=== PATIENT | female | born 1960 | race Hispanic/Latino ===

== ENCOUNTER 2021-03-10 16:18 | Emergency (ER) | payer OTHER ==
[2021-03-10 17:11] LABS: Absolute Lymphocytes (CBC) 2.3 K/uL (0.7-4.9); Basophils % 0.6 % (0-1.3); Hematocrit 39.1 % (36.0-45.0); Lymphocytes % 31.8 % (15.3-44.8); MPV 9.9 fL (7.6-11.3); RBC Red Blood Cell Count 4.41 M/uL (3.86-4.86)
[2021-03-10] MEDS ORDERED: NA CHLORIDE 0.9% 1,000 ML ONE (17:16)
[2021-03-10 17:40] LABS: ALT/SGPT 63 U/L (12-78); AST/SGOT 43 U/L (15-37); Albumin 3.7 g/dL (3.4-5.0); Alkaline Phosphatase 96 U/L (45-117); BUN Blood Urea Nitrogen 14 mg/dL (7-18); Bicarbonate 28 mmol/L (21-32); Bilirubin Direct < 0.1 mg/dL (0-0.2); Bilirubin Total 0.3 mg/dL (0.2-1.0); Glucose Level 222 mg/dL (74-106); NT PRO-BNP 64 pg/mL (<125); Potassium 3.4 mmol/L (3.5-5.1); Protein, Total 7.6 g/dL (6.4-8.2); Sodium Level 139 mmol/L (136-145); Troponin (Emerg Dept Use Only) < 0.02 ng/mL (0.0-0.045)
--- NOTE | 2021-03-10 17:50 | RAD REPORT ---
EXAM DESCRIPTION: RAD - Chest Single View - 03/10/2021 5:14 pm CLINICAL HISTORY: CHEST PAIN COMPARISON: None TECHNIQUE: AP portable chest image was obtained 03/10/2021 5:14 pm . FINDINGS: Lung volumes are low. No peripheral mass or consolidation. No significant failure or volum e overload. Large body habitus, portable technique and low lung volumes accentuate the interstitial p attern. Heart and vasculature are normal. No measurable pleural effusion and no pneumothorax. No acut e bony abnormality seen. No acute aortic findings suspected. IMPRESSION: No acute cardiopulmonary process.
[2021-03-10] MEDS ORDERED: LORazepam 2 MG/ML VIAL ONE (18:14)
--- NOTE | 2021-03-10 18:58 | ER ---
Nurse's Notes [facility] Name: Dominik Loving Age: 61 yrs Sex: Female : 1960 Arrival Date: 03/10/2021 Time: 16:22 Bed 2 Private MD: Diagnosis: Shortness of breath Presentation: 03/10 16:30 Chief complaint: Patient states: Heart palpitations, pressure and SOB began around 1400 ld1 today. Denies chest pain. Coronavirus screen: At this time, the client does not indicate any symptoms associated with coronavirus-19. Ebola Screen: No symptoms or risks identified at this time. Initial Sepsis Screen: Does the patient meet any 2 criteria? No. Patient's initial sepsis screen is negative. Does the patient have a suspected source of infection? No. Patient's initial sepsis screen is negative. Risk Assessment: Do you want to hurt yourself or someone else? Patient reports no desire to harm self or others. Onset of symptoms was March 10, 2021. 16:30 Method Of Arrival: Ambulatory ld1 16:30 Acuity: CHEN 3 ld1 Triage Assessment: 16:33 General: Appears in no apparent distress. comfortable, Behavior is calm, cooperative, ld1 appropriate for age. Pain: Denies pain. EENT: No signs and/or symptoms were reported regarding the EENT system. Neuro: Level of Consciousness is awake, alert, obeys commands, Oriented to person, place, time, situation, Appropriate for age. Neuro: Reports blurred vision. Cardiovascular: Reports fatigue, lightheadedness, palpitations, shortness of breath. Cardiovascular: Capillary refill < 3 seconds Patient's skin is warm and dry. Respiratory: Airway is patent Respiratory effort is even, unlabored, Respiratory pattern is regular, symmetrical. GI: Abdomen is round non-distended, Reports nausea. : No signs and/or symptoms were reported regarding the genitourinary system. Derm: No signs and/or symptoms reported regarding the dermatologic system. Musculoskeletal: No signs and/or symptoms reported regarding the musculoskeletal system. Historical: - Allergies: 18:47 No Known Allergies; jl7 - PMHx: 18:47 Hypertensive disorder; High cholesterol; jl7 - PSHx: 16:33 section; Cholecystectomy; Partial hysterectomy; ld1 - Immunization history:: Adult Immunizations up to date, Client reports receiving the 2nd dose of the Covid vaccine. - Social history:: Smoking status: Patient denies any tobacco usage or history of. Patient/guardian denies using alcohol, Patient/guardian denies using street drugs, The patient lives with family. - Family history:: not pertinent. Screenin:45 Abuse screen: Denies threats or abuse. Denies injuries from another. Nutritional jl7 screening: No deficits noted. Tuberculosis screening: No symptoms or risk factors identified. Fall Risk IV access (20 points). Total Sotelo Fall Scale indicates No Risk (0-24 pts). Assessment: 16:35 General: Appears in no apparent distress. uncomfortable, Behavior is cooperative, jl7 appropriate for age, anxious. Pain: Denies pain. Neuro: Level of Consciousness is awake, alert, obeys commands, Oriented to person, place, time, situation. Cardiovascular: Reports palpitations, shortness of breath, Patient's skin is warm and dry. Respiratory: Airway is patent Respiratory effort is even, unlabored, Respiratory pattern is regular, symmetrical. GI: Abdomen is non-distended, Reports nausea. Derm: Skin is pink, warm \T\ dry. 17:30 Reassessment: Patient appears in no apparent distress at this time. Patient and/or jl7 family updated on plan of care and expected duration. Pain level reassessed. Patient is alert, oriented x 3, equal unlabored respirations, skin warm/dry/pink. Patient states feeling better. 18:30 Reassessment: Patient appears in no apparent distress at this time. Patient and/or jl7 family updated on plan of care and expected duration. Pain level reassessed. Patient is alert, oriented x 3, equal unlabored respirations, skin warm/dry/pink. Patient states feeling better. Patient states symptoms have improved. Vital Signs: 16:30 BP 156 / 99; Pulse 99; Resp 20; Temp 97.9(TE); Pulse Ox 98% on R/A; Weight 97.98 kg; ld1 Height 5 ft. 1 in. (154.94 cm); Pain 0/10; 18:34 BP 123 / 78; Pulse 87; Resp 15; Pulse Ox 95% ; jl7 16:30 Body Mass Index 40.81 (97.98 kg, 154.94 cm) ld1 ED Course: 16:22 Patient arrived in ED. mr 16:31 Triage completed. ld1 16:33 Arm band placed on left wrist. ld1 16:34 Little Puente MD is Attending Physician. ma2 16:37 Irineo Cali, RN is Primary Nurse. jl7 16:45 Patient has correct armband on for positive identification. Placed in gown. Bed in low jl7 position. Call light in reach. Side rails up X 1. pvc monitor on. Pulse ox on. NIBP on. Warm blanket given. 17:00 Initial lab(s) drawn, by me, sent to lab. EKG done, by ED staff, reviewed by Little Puente MD COVID swab sent to lab. Inserted saline lock: 20 gauge in left antecubital area, using aseptic technique. Blood collected. 17:14 XRAY Chest (1 view) In Process Unspecified. EDMS 19:15 No provider procedures requiring assistance completed. IV discontinued, intact, jl7 bleeding controlled, No redness/swelling at site. Pressure dressing applied. Administered Medications: 17:30 Drug: NS 0.9% 1000 ml Route: IV; Rate: 1 bolus; Site: left antecubital; jl7 19:00 Follow up: Response: No adverse reaction; IV Status: Completed infusion; IV Intake: jl7 300ml 18:00 Drug: Ativan (LORazepam) 1 mg Route: IVP; Site: left antecubital; jl7 18:45 Follow up: Response: No adverse reaction; Anxiety decreased jl7 Intake: 19:00 IV: 300ml; Total: 300ml. jl7 Outcome: 18:57 Discharge ordered by . ma2 19:15 Discharged to home ambulatory. jl7 19:15 Condition: stable 19:15 Discharge instructions given to patient, Instructed on discharge instructions, follow up and referral plans. Demonstrated understanding of instructions, follow-up care. 19:16 Patient left the ED. jl7 Signatures: Dispatcher [employer] EDOK Della Sweet mr Irineo Cali, RN RN Little Gamez MD MD ma2 Dibbern, Lauren, RN RN ld1 Corrections: (The following items were deleted from the chart) 16:35 16:31 Allergies: No Known Allergies; ld1 ld1 16:35 16:31 Home Meds: methocarbamol 500 mg Oral tab 2 tabs 4 times per day; ld1 ld1 16: 16:31 Home Meds: rosuvastatin 5 mg oral cpSP 1 cap once daily; ld1 ld1 16: 16:31 Home Meds: carvedilol 25 mg oral tab 1 tab 2 times per day; ld1 ld1 16: 16:31 Home Meds: hydralazine 50 mg Oral tab 1 tab 2 times per day; ld1 ld1 16: 16:31 Home Meds: fibahkzhwx-lxihtulvd-jqibrzfrs 40-10-12.5 mg oral tab 1 tab once ld1 daily; ld1 16: 16:33 PMHx: Hypertensive disorder; ld1 16 16:33 PMHx: Diabetes mellitus; ld1 16 16:33 PMHx: Hypercholesterolemia; ld1 ld1 16: 16:33 PSHx: Colectomy; ld1 ld1
--- NOTE | 2021-03-10 18:58 | EDPHYS ---
Physician Documentation [facility] Name: Dominik Loving Age: 61 yrs Sex: Female : 1960 Arrival Date: 03/10/2021 Time: 16:22 Bed 2 Private MD: ED Physician Little Puente HPI: 03/10 17:27 This 61 yrs old Female presents to ER via Ambulatory with complaints of ma2 Palpitations, Nausea. 17:27 Context: The symptoms occur during sleep. Onset: The symptoms/episode began/occurred ma2 gradually, 1 day(s) ago. Associated signs and symptoms: Pertinent negatives: cough, lightheadedness, syncope, unusual stressors. Severity of symptoms: At their worst the symptoms were mild in the emergency department the symptoms have improved. The patient has experienced similar episodes in the past. Historical: - Allergies: 18:47 No Known Allergies; jl7 - PMHx: 18:47 Hypertensive disorder; High cholesterol; jl7 - PSHx: 16:33 section; Cholecystectomy; Partial hysterectomy; ld1 - Immunization history:: Adult Immunizations up to date, Client reports receiving the 2nd dose of the Covid vaccine. - Social history:: Smoking status: Patient denies any tobacco usage or history of. Patient/guardian denies using alcohol, Patient/guardian denies using street drugs, The patient lives with family. - Family history:: not pertinent. ROS: 17:27 Constitutional: Negative for fever, chills, and weight loss. ma2 17:27 All other systems are negative. Exam: 17:27 Constitutional: This is a well developed, well nourished patient who is awake, alert, ma2 and in no acute distress. Head/Face: Normocephalic, atraumatic. Eyes: Pupils equal round and reactive to light, extra-ocular motions intact. Lids and lashes normal. Conjunctiva and sclera are non-icteric and not injected. Cornea within normal limits. Periorbital areas with no swelling, redness, or edema. ENT: Nares patent. No nasal discharge, no septal abnormalities noted. Tympanic membranes are normal and external auditory canals are clear. Oropharynx with no redness, swelling, or masses, exudates, or evidence of obstruction, uvula midline. Mucous membranes moist. Neck: Trachea midline, no thyromegaly or masses palpated, and no cervical lymphadenopathy. Supple, full range of motion without nuchal rigidity, or vertebral point tenderness. No Meningismus. Chest/axilla: Normal chest wall appearance and motion. Nontender with no deformity. No lesions are appreciated. Cardiovascular: Regular rate and rhythm with a normal S1 and S2. No gallops, murmurs, or rubs. Normal PMI, no JVD. No pulse deficits. Respiratory: Lungs have equal breath sounds bilaterally, clear to auscultation and percussion. No rales, rhonchi or wheezes noted. No increased work of breathing, no retractions or nasal flaring. Abdomen/GI: Soft, non-tender, with normal bowel sounds. No distension or tympany. No guarding or rebound. No evidence of tenderness throughout. Back: No spinal tenderness. No costovertebral tenderness. Full range of motion. Skin: Warm, dry with normal turgor. Normal color with no rashes, no lesions, and no evidence of cellulitis. MS/ Extremity: Pulses equal, no cyanosis. Neurovascular intact. Full, normal range of motion. Neuro: Awake and alert, GCS 15, oriented to person, place, time, and situation. Cranial nerves II-XII grossly intact. Motor strength 5/5 in all extremities. Sensory grossly intact. Cerebellar exam normal. Normal gait. Psych: Awake, alert, with orientation to person, place and time. Behavior, mood, and affect are within normal limits. Vital Signs: 16:30 BP 156 / 99; Pulse 99; Resp 20; Temp 97.9(TE); Pulse Ox 98% on R/A; Weight 97.98 kg; ld1 Height 5 ft. 1 in. (154.94 cm); Pain 0/10; 18:34 BP 123 / 78; Pulse 87; Resp 15; Pulse Ox 95% ; jl7 16:30 Body Mass Index 40.81 (97.98 kg, 154.94 cm) ld1 MDM: 16:38 Patient medically screened. ma2 18:55 BOBBI Risk Score: Not Applicable. Differential diagnosis: arrythmia, dehydration, stress ma2 disorder. Differential diagnosis: arrythmia. Data reviewed: vital signs, nurses notes. Data interpreted: phototypesetting equipment monitor:. Counseling: I had a detailed discussion with the patient and/or guardian regarding: the historical points, exam findings, and any diagnostic results supporting the discharge/admit diagnosis, the presence of at least one elevated blood pressure reading (>120/80) during this emergency department visit, the need for outpatient follow up. Response to treatment: the patient's symptoms have markedly improved after treatment. ED course: patient did not had any chest pain or angina equivalent . 18:57 Patient medically screened. [facility] 03/10 16:33 Order name: Basic Metabolic Panel; Complete Time: 18:01 kb 03/10 16:33 Order name: CBC with Diff; Complete Time: 17:26 kb 03/10 16:33 Order name: LFT's; Complete Time: 18: kb 03/10 16:33 Order name: Magnesium; Complete Time: 18: kb 03/10 16:33 Order name: NT PRO-BNP; Complete Time: 18: kb 03/10 16:33 Order name: PT-INR; Complete Time: 17:26 kb 03/10 16:33 Order name: Troponin (emerg Dept Use Only); Complete Time: 18:01 kb 03/10 16:33 Order name: XRAY Chest (1 view); Complete Time: 18:01 kb 03/10 16:33 Order name: EKG; Complete Time: 16:34 kb 03/10 16:33 Order name: Cardiac monitoring; Complete Time: 17:04 kb 03/10 16:42 Order name: COVID-19 SARS RT PCR (Document "Date of Onset" if Symptomatic) 1 03/10 18:13 Order name: D-Dimer; Complete Time: 18:55 [facility] 03/10 16:33 Order name: EKG - Nurse/Tech; Complete Time: 17:04 kb 03/10 16:33 Order name: IV Saline Lock; Complete Time: 17:04 kb 03/10 16:33 Order name: Labs collected and sent; Complete Time: 17:05 kb 03/10 16:33 Order name: O2 Per Protocol; Complete Time: 17:05 kb 03/10 16:33 Order name: O2 Sat Monitoring; Complete Time: 17:05 kb Administered Medications: 17:30 Drug: NS 0.9% 1000 ml Route: IV; Rate: 1 bolus; Site: left antecubital; jl7 19:00 Follow up: Response: No adverse reaction; IV Status: Completed infusion; IV Intake: jl7 300ml 18:00 Drug: Ativan (LORazepam) 1 mg Route: IVP; Site: left antecubital; 7 18:45 Follow up: Response: No adverse reaction; Anxiety decreased jl7 Disposition Summary: 03/10/21 18:57 Discharge Ordered Location: Home ma2 Condition: Stable ma2 Diagnosis - Shortness of breath ma2 Followup: ma2 - With: Private Physician - When: Tomorrow - Reason: Continuance of care Discharge Instructions: - Discharge Summary Sheet ma2 - Shortness of Breath, Adult, Zvta-sk-Odex ma2 Forms: - Medication Reconciliation Form ma2 - Thank You Letter ma2 - Antibiotic Education ma2 - Prescription Opioid Use ma2 Signatures: Dispatcher [employer] EDIva Padron FNP-C FNP-Irineo Mcmullen RN RN jl7 Little Puente MD MD ma2 Lovely Covarrubias RN RN ld1 Corrections: (The following items were deleted from the chart) 16:35 16:31 Allergies: No Known Allergies; ld1 ld 16:35 16:31 Home Meds: methocarbamol 500 mg Oral tab 2 tabs 4 times per day; ld1 ld 16:35 16:31 Home Meds: rosuvastatin 5 mg oral cpSP 1 cap once daily; ld1 ld 16:35 16:31 Home Meds: carvedilol 25 mg oral tab 1 tab 2 times per day; ld1 ld 16:35 16:31 Home Meds: hydralazine 50 mg Oral tab 1 tab 2 times per day; ld1 ld 16:35 16:31 Home Meds: ofrtusrvmm-jjydbszid-cjogkjefu 40-10-12.5 mg oral tab 1 tab once ld1 daily; ld 16:35 16:33 PMHx: Hypertensive disorder; ld1 ld 16: 16:33 PMHx: Diabetes mellitus; ld1 ld 16: 16:33 PMHx: Hypercholesterolemia; ld1 ld 16:35 16:33 PSHx: Colectomy; ld1 ld1
[2021-03-10 19:30] VITALS: TEMP 97.9
[2021-03-10 19:32] VITALS: BP 123/78; O2SAT 95
--- NOTE | 2021-03-11 20:37 | EKG ---
Test Date: 2021-03-10 Test Time: 16:38:45 Traffic Signal Supervisor Maintenance: [place] MEASUREMENT RESULTS: Intervals: Rate: 93 FL: 148 QRSD: 68 QT: 390 QTc: 484 [place]: P: 38 FL: 148 QRS: 9 T: 59 INTERPRETIVE STATEMENTS: Normal sinus rhythm Nonspecific ST abnormality Abnormal ECG No previous ECG available for comparison Electronically Signed On 03-11-21 20:35:11 COMMANDING OFFICER GARAGE by Onesimo Renee
--- OUTSIDE RECORDS SUMMARY | 2021-03-12 21:46 | XMS REPORT | Continuity of Care Document ---
:1960 Author Organization [facility] t Address [address] [place] [address] Care Team Providers Name Role Phone Pcp, Does Not Have A Primary Care Physician Nurse, Db Urgent Care Attending Clinician Unavailable Ebrahim ROSS CARRIER DRIVER Attending Clinician EBRAHIM Attending Clinician Unavailable Provider, Urgent Care Attending Clinician Unavailable Anene ROSS CARRIER DRIVER Attending Clinician ANENE Attending Clinician Unavailable Payers Payer Name Policy Type Policy Number Effective Date Expiration Date Sav PALM [employer] [id number] 2020 00:00:00 Problems Condition Condition Condition Status Onset Resolution Last Treating Co mments Source Name Details Category Date Date Treatment Clinician Date No known No known Disease Unive rs active active ity of problems problems [facility] Allergies, Adverse Reactions, Alerts Allergy Allergy Status Severity Reaction(s) Onset Inactive Treating Comm ents Source Name Type Date Date Clinician NO KNOWN Drug Active Univers ALLERGIE Class ity of S [facility] Social History Social Habit Start Date Stop Date Quantity Comments Source Exposure to Not sure [facility] SARS-CoV-2 [facility] (event) [place] Alcohol intake 2021-03-10 2021-03-10 Lifetime University of 00:00:00 00:00:00 non-drinker [facility] (finding) [place] Tobacco use and 2020-08-13 2020-08-13 Never used Universit y of exposure 00:00:00 00:00:00 [facility] Sex Assigned At [birth year] Universit y of 00:00:00 00:00:00 [facility] Smoking Status Start Date Stop Date Source Never smoker [facility] Medications Ordered Filled Start Stop Current Ordering Indication Dosage Frequency Signature Comments Components Source Medication Medication Date Date Medication? Clinician (SIG) Name Name paula 2020-0 2020- No [id number] 40mg Univers ne 08-13 ity of acetonide 14:30: 13:41 [place] (KENALOG) 00 :00 Medical injection Branch 40 mg triamcinolo 0 2020- No [id number] 40mg 40 mg, Univers ne 08-13 Intramuscu ity of acetonide 14:30: 13:41 [place]CE, [place] 00 :00 1 dose, Medical injection Fri Branch 40 mg 08/13/20 at 0930, Routine amLODIPine Yes 10mg Take 10 mg U nivers 10 mg 3-28 by mouth ity of tablet 00:00: daily. [facility] olmesartan Yes 40mg Take 40 mg U nivers 40 mg 3-28 by mouth ity of tablet 00:00: daily. [facility] amLODIPine Yes 10mg Take 10 mg U nivers 10 mg 3-28 by mouth ity of tablet 00:00: daily. [facility] olmesartan Yes 40mg Take 40 mg U nivers 40 mg 3-28 by mouth ity of tablet 00:00: daily. [facility] hydrALAZINE 0 Yes 50mg Take 50 mg Univers 50 mg 2-21 by mouth 3 ity of tablet 00:00: (three) [place] times Medical daily. Branch hydrALAZINE 0 Yes 50mg Take 50 mg Univers 50 mg 2-21 by mouth 3 ity of tablet 00:00: (three) [place] times Medical daily. Branch ibuprofen 0 Yes 800mg Take 800 Uni vers 800 mg 1-26 mg by ity of tablet 00:00: mouth 3 [place] (three) Medical times Branch daily. ibuprofen 2020-0 Yes 800mg Take 800 Uni vers 800 mg 1-26 mg by ity of tablet 00:00: mouth 3 [place] (three) Medical times Branch daily. Vital Signs Vital Name Observation Time Observation Value Comments Source Systolic blood 2021-03-10 21:50:00 134 mm[Hg] Univer sity of pressure [facility] Branch Diastolic blood 2021-03-10 21:50:00 85 mm[Hg] Unive rsity of pressure [facility] Heart rate 2021-03-10 21:50:00 95 /min [facility] Body temperature 2021-03-10 21:47:00 37 Carmen Univ ersity [facility] Respiratory rate 2021-03-10 21:47:00 18 /min Univ ers[facility] Body height 2021-03-10 21:47:00 154.9 cm [facility] Body weight 2021-03-10 21:47:00 97.977 kg [facility] [place] [facility] BMI 2021-03-10 21:47:00 40.81 kg/m2 [facility] Oxygen saturation in 2021-03-10 21:47:00 98 /min University of Arterial blood by [facility] Pulse oximetry Branch Systolic blood 2020-08-13 13:09:00 156 mm[Hg] Univer sity of pressure [facility] Diastolic blood 2020-08-13 13:09:00 99 mm[Hg] Unive rsity of pressure [facility] Heart rate 2020-08-13 13:05:00 83 /min [facility] Body temperature 2020-08-13 13:05:00 36.83 Carmen [facility] Respiratory rate 2020-08-13 13:05:00 13 /min Univ ers[facility] Body height 2020-08-13 13:05:00 154.9 cm [facility] Body weight 2020-08-13 13:05:00 95.255 kg [facility] [place] [facility] BMI 2020-08-13 13:05:00 39.68 kg/m2 [facility] Oxygen saturation in 2020-08-13 13:05:00 96 /min University of Arterial blood by [facility] Pulse oximetry Branch Procedures This patient has no known procedures. Encounters Start End Encounter Admission Attending Care Care Encounter Source Date/Time Date/Time Type Type Clinicians Facility Department ID 2021-03-10 2021-03-10 Nurse Nurse, Ifeanyi [facility] [id number] [facility] 15:43:25 16:03:25 Visit nvadrien [facility] [id number] ity of [place] [id number] [place] as RICHARD?BLEA [id number] Or mary WILKSEY [address] [place] MED[facility] OFF[facility] 2021-03-10 2021-03-10 Outpatient R [facility] [id number] Univers 15:45:00 15:45:[id number] 2021-03-10 [facility] [id number] Univers 15:45:00 15:45:00 [facility] 2021-03-10 2021-03-10 [facility] [id number] Univers 15:40:00 15:40:00 [facility] 2020-08-13 2020-08-13 Urgent Provider, [facility] [id number] Univers 08:03:51 08:23:51 [facility] [id number] ity of [place] [id number] [place] as Professio [phone] Or mary trejo [address] [place] [address] 2020-08-13 2020-08-13 Outpatient R SHAYLEE [facility] [id number] Univers 08:00:00 08:00:00 [facility] Results This patient has no known results.
== END 2021-03-10 19:16 | disposition home or self-care (01) ==
LOC: ER 16:18
DX: R06.02 Shortness of breath (principal); Z20.822 Contact with and (suspected) exposure to COVID-19
CPT/HCPCS: 96361; 93005; 85025; 80048; 36415; 83735; 85610; 85379; 80076; 84484; 83880; 71045; 96374; 99284; U0003; J7030